=== PATIENT | female | born 1950 | race Caucasian/White ===

== ENCOUNTER 2024-09-07 12:43 | Inpatient (IN) | payer OTHER, BC ==
[2024-09-07 14:34] LABS: ABSOLUTE IMMATURE GRANULOCYTES 0.21 x10^3/uL (0.0-0.031); BASOPHILS # 0.03 x10^3/uL (0.01-0.08); EOSINOPHIL % 0.6 % (0.7-5.8); EOSINOPHILS # 0.06 x10^3/uL (0.04-0.36); MCHC 31.1 g/dl (32.2-35.5); MEAN CELL VOLUME 82.2 fl (79.4-94.8); MEAN PLT VOLUME 8.9 fl (9.4-12.3); MONOCYTE # 0.82 x10^3/uL (0.24-0.86); MONOCYTE % 8.3 % (4.7-12.5); RDW 14.6 % (12.4-16.6)
[2024-09-07 14:53] LABS: URINE APPEARANCE CLEAR; URINE BILIRUBIN NEGATIVE (NEGATIVE); URINE COLOR YELLOW; URINE GLUCOSE (UA) 3+ (NEGATIVE); URINE KETONE NEGATIVE (NEGATIVE)
[2024-09-07 14:54] LABS: URINE LEUK ESTERASE 2+ (NEGATIVE); URINE NITRITE NEGATIVE (NEGATIVE); URINE PROTEIN 1+ (NEGATIVE); URINE UROBILINOGEN 0.2 mg/dL (0.2-1.0)
[2024-09-07 14:55] LABS: CO2 27.0 mmol/L (21-32); GLUCOSE,RANDOM 395.0 mg/dL (74-106)
[2024-09-07 14:58] LABS: CREATININE 0.9 mg/dL (0.55-1.3); SGOT/AST 14.0 U/L (15-37); SGPT/ALT 21.0 U/L (13-61)
[2024-09-07 15:00] LABS: TOT PROT 6.6 g/dl (6.4-8.2)
[2024-09-07 15:01] LABS: ALK PHOS 124.0 U/L (45-117)
[2024-09-07] MEDS ORDERED: ACETAMINOPHEN INJECTION 100 ML ONE (15:26)
[2024-09-07] MEDS ORDERED: ONDANSETRON 4 MG/2 ML VIAL ONE (15:26)
[2024-09-07] MEDS: FAMOTIDINE 20 MG/50 ML IVPB 20 MG/50 ML MG IVPB ONE (15:33)
[2024-09-07] MEDS: ONDANSETRON 4 MG/2 ML VIAL IVPB ONE (15:33)
[2024-09-07] MEDS: SODIUM CHLORIDE 0.9% 500 ML INFUS.BAG IV ONE (15:33)
[2024-09-07] MEDS: ACETAMINOPHEN 1000 MG/100 ML BAG IVPB ONE (15:50)
[2024-09-07] MEDS: INSULIN ASPART SLIDING SCALE (NOVOLOG) 1 VIAL SQ SCH (18:06)
[2024-09-07] MEDS: CEFTRIAXONE 1 GM in DEXTROSE 5%-WATER - 50 ML IVPB SCH (18:07)
[2024-09-07 19:03] VITALS: BMI 31.5
[2024-09-08 08:54] LABS: ABSOLUTE IMMATURE GRANULOCYTES 0.26 x10^3/uL (0.0-0.031); BASOPHILS # 0.04 x10^3/uL (0.01-0.08); EOSINOPHIL % 1.1 % (0.7-5.8); EOSINOPHILS # 0.11 x10^3/uL (0.04-0.36); MCHC 30.5 g/dl (32.2-35.5); MEAN CELL VOLUME 82.1 fl (79.4-94.8); MEAN PLT VOLUME 9.3 fl (9.4-12.3); MONOCYTE # 0.72 x10^3/uL (0.24-0.86); MONOCYTE % 7.4 % (4.7-12.5); RDW 14.6 % (12.4-16.6)
[2024-09-08] MEDS: ENOXAPARIN NA (PORCINE) 40 MG/0.4 ML DISP.SYRIN SQ SCH (09:39)
[2024-09-08] MEDS: amLODIPine BESYLATE 5 MG TABLET (FP) PO SCH (09:39)
[2024-09-08 10:15] LABS: CO2 28.0 mmol/L (21-32); GLUCOSE,RANDOM 279.0 mg/dL (74-106)
[2024-09-08 10:18] LABS: CREATININE 0.9 mg/dL (0.55-1.3); SGPT/ALT 19.0 U/L (13-61)
[2024-09-08 10:19] LABS: SGOT/AST 14.0 U/L (15-37)
[2024-09-08 10:20] LABS: TOT PROT 6.2 g/dl (6.4-8.2)
[2024-09-08 10:21] LABS: ALK PHOS 105.0 U/L (45-117)
[2024-09-08] MEDS: SERTRALINE HCL 50 MG TABLET (FP) PO SCH (16:03)
[2024-09-08] MEDS: RAMIPRIL 5 MG CAPSULE PO SCH (17:30)
[2024-09-09 10:18] LABS: ABSOLUTE IMMATURE GRANULOCYTES 0.41 x10^3/uL (0.0-0.031); BASOPHILS # 0.03 x10^3/uL (0.01-0.08); EOSINOPHIL % 1.7 % (0.7-5.8); EOSINOPHILS # 0.15 x10^3/uL (0.04-0.36); MCHC 30.1 g/dl (32.2-35.5); MEAN CELL VOLUME 83.5 fl (79.4-94.8); MEAN PLT VOLUME 9.6 fl (9.4-12.3); MONOCYTE # 0.56 x10^3/uL (0.24-0.86); MONOCYTE % 6.5 % (4.7-12.5); RDW 14.7 % (12.4-16.6)
[2024-09-09 11:21] LABS: GLUCOSE,RANDOM 265.0 mg/dL (74-106)
[2024-09-09 11:22] LABS: CO2 28.0 mmol/L (21-32)
[2024-09-09 11:25] LABS: CREATININE 0.8 mg/dL (0.55-1.3); SGOT/AST 10.0 U/L (15-37); SGPT/ALT 17.0 U/L (13-61)
[2024-09-09 11:26] LABS: TOT PROT 6.2 g/dl (6.4-8.2)
[2024-09-09 11:28] LABS: ALK PHOS 108.0 U/L (45-117)
[2024-09-09] MEDS: INSULIN GLARGINE (LANTUS) 100 UNITS/ML UNITS SQ SCH (22:08)
[2024-09-09] MEDS: INSULIN ASPART SLIDING SCALE (NOVOLOG) 1 VIAL SQ SCH (22:13)
[2024-09-09] MEDS: KETOROLAC TROMETHAMINE 30 MG/1 ML VIAL IVPUSH PRN (23:44)
[2024-09-09] MEDS: diphenhydrAMINE HCL 25 MG CAPSULE (FP) PO ONE (23:44)
[2024-09-10] MEDS: ACETAMINOPHEN 1000 MG/100 ML BAG IVPB PRN (06:15)
[2024-09-10] MEDS: INSULIN GLARGINE (LANTUS) 100 UNITS/ML UNITS SQ SCH (06:15)
[2024-09-10 09:12] LABS: ABSOLUTE IMMATURE GRANULOCYTES 0.44 x10^3/uL (0.0-0.031); BASOPHILS # 0.04 x10^3/uL (0.01-0.08); EOSINOPHIL % 2.1 % (0.7-5.8); EOSINOPHILS # 0.19 x10^3/uL (0.04-0.36); MCHC 30.0 g/dl (32.2-35.5); MEAN CELL VOLUME 82.9 fl (79.4-94.8); MEAN PLT VOLUME 9.1 fl (9.4-12.3); MONOCYTE # 0.65 x10^3/uL (0.24-0.86); MONOCYTE % 7.2 % (4.7-12.5); RDW 14.6 % (12.4-16.6)
[2024-09-10 09:49] LABS: GLUCOSE,RANDOM 141.0 mg/dL (74-106)
[2024-09-10 09:50] LABS: CO2 30.0 mmol/L (21-32)
[2024-09-10 09:52] LABS: CREATININE 0.8 mg/dL (0.55-1.3); SGOT/AST 12.0 U/L (15-37); SGPT/ALT 20.0 U/L (13-61)
[2024-09-10 09:54] LABS: TOT PROT 6.5 g/dl (6.4-8.2)
[2024-09-10 09:55] LABS: ALK PHOS 113.0 U/L (45-117)
[2024-09-10] MEDS: MAGNESIUM OXIDE 400 MG TABLET (FP) PO ONE (10:54)
[2024-09-10 13:34] VITALS: BP 158/54; PULSE 68; RESP 17; TEMP 97.9
[2024-09-10] MEDS: INSULIN (NOVOLOG) ASPART 100 UNITS/ML 10ML VIAL SQ ONE (16:35)
[2024-09-10] MEDS ORDERED: CEFUROXIME AXETIL 500 MG TABLET PO SCH (22:00)
[2024-09-10] MEDS ORDERED: traZODone HCL 50 MG TABLET (FP) PO SCH (22:00)
[2024-09-11] MEDS ORDERED: PIOGLITAZONE HCL 15 MG TABLET PO SCH (07:00)
[2024-09-11] MEDS ORDERED: INSULIN GLARGINE (LANTUS) 100 UNITS/ML UNITS SQ SCH (07:00)
[2024-09-11] MEDS ORDERED: LACTOBACILLUS ACIDOPHILUS 1 TABLET PO SCH (10:00)
[2024-09-11] MEDS ORDERED: GLIMEPIRIDE 4 MG TABLET PO SCH (10:00)
== END 2024-09-10 20:03 | disposition home health service (06) | DRG 690 ==
LOC: JER 12:43 → JERBED 15:53 → J8W 17:40 → OBSVTOIN 20:36
PROVIDERS: ADMIT Internal Medicine; ATTEND Nurse Practitioner Acute Care
DX: N30.00 Acute cystitis without hematuria (principal); I10 Essential (primary) hypertension; J45.909 Unspecified asthma, uncomplicated; E11.65 Type 2 diabetes mellitus with hyperglycemia; F32.A Depression, unspecified; E11.40 Type 2 diabetes mellitus with diabetic neuropathy, unspecified; E66.9 Obesity, unspecified; Z68.31 Body mass index [BMI] 31.0-31.9, adult
CPT/HCPCS: 36415; 71045-TC-FY; 80053; 81003; 82962; 83036; 83735; 84484; 85025; 87086; 87637-QW; 93005; 93010; 99285-25; G0378